=== PATIENT | female | born 1945 | race Caucasian/White ===

== ENCOUNTER → 2017-11-09 | Outpatient (CLI) | payer MEDICARE, OTHER ==
[~2017-11-09] MED LIST: ACET-458 PO; AMLO5TAB2 PO; ASPI-621 PO; ATOR40TA78 PO; BACL-19 PO; CALCIUM CIT PO; CO Q10; FENO145T30 PO; GLUC1TAB91 PO; HYDR25TA6 PO; KRIL1CAP23 PO; LEVO137T3 PO; LOSA100T6 PO; MAG PO; MAGNESIUM; MELO7.5T31 PO; METO25TA35 PO; MULT-717 PO; OXYC5TAB2 PO; POTA20TA89 PO; SENN1TAB67 PO; SPIR1TAB PO; TRAM50TA2 PO; VITA150T PO; VITAMIN C; VITAMIN D3; VITAMIN E; ZINC PO
[2017-11-09 14:28] LABS: ALANINE AMINOTRANSFERASE 30 U/L (12-78); ALBUMIN 4.2 g/dL (3.4-5.0); ANION GAP 8 mmol/L (5-15); CALCIUM 9.4 mg/dL (8.5-10.1); CHLORIDE 107 mmol/L (98-107); CREATININE 0.97 mg/dL (0.55-1.02)
[2017-11-09 14:31] LABS: ALKALINE PHOSPHATASE 47 U/L (45-117); BILIRUBIN,TOTAL 0.4 mg/dL (0.2-1.0); TOTAL PROTEIN 7.3 g/dL (6.4-8.2)
== END | disposition home or self-care (01) ==
LOC: STAR 13:13
PROVIDERS: ATTEND Surgery
DX: Z01.818 Encounter for other preprocedural examination (principal); K81.1 Chronic cholecystitis; R00.1 Bradycardia, unspecified
CPT/HCPCS: 36415; 80053; 93005

== ENCOUNTER 2017-11-16 09:55 | Day surgery (SDC) | payer MEDICARE, OTHER ==
[~2017-11-16] VITALS: Ht 170.2 cm; Wt 84.1 kg
[~2017-11-16 09:55] MED LIST changes: +BUPIVACAINE/PF-EPI 0.5% 1:200K ONE
[2017-11-16] MEDS ORDERED: LACTATED RINGERS 1,000 ML IV SCH (11:03)
[2017-11-16 11:27] VITALS: BP 162/75
[2017-11-16] MEDS ORDERED: ONDANSETRON ODT 8 MG PO ONE (11:30)
[2017-11-16] MEDS ORDERED: OxyconTIN ER 10 MG TAB.ER PO ONE (11:30)
[2017-11-16] MEDS ORDERED: ACETAMINOPHEN 500 MG TABLET PO ONE (11:30)
[2017-11-16] MEDS ORDERED: GABAPENTIN 300 MG CAPSULE PO ONE (11:30)
[2017-11-16] MEDS ORDERED: FENTANYL PF 100 MCG/2ML ONE ×2 (11:35→12:34)
[2017-11-16] MEDS ORDERED: LIDOCAINE-MPF 1%, 5ML ONE (11:52)
[2017-11-16] MEDS ORDERED: KETOROLAC 30 MG/1 ML ONE (11:52)
[2017-11-16] MEDS ORDERED: CEFAZOLIN 1,000 MG ONE ×2 (11:52→12:15)
[2017-11-16] MEDS ORDERED: ROCURONIUM 10 MG/ML,10ML ONE (11:52)
[2017-11-16] MEDS ORDERED: GLYCOPYRROLATE 0.2MG/1ML, 5ML ONE (12:15)
[2017-11-16] MEDS ORDERED: PROPOFOL 10 MG/ML, 20ML ONE (12:15)
[2017-11-16] MEDS ORDERED: DEXAMETHASONE 4 MG/ML, 1ML ONE (12:15)
[2017-11-16] MEDS ORDERED: NEOSTIGMINE 1 MG/ML, 10ML ONE (12:15)
[2017-11-16] MEDS ORDERED: SUCCINYLCHOLINE 20 MG/ML, 10ML ONE (12:15)
[2017-11-16] MEDS: MEPERIDINE/PF 25MG/0.5ML IVPush PRN ×2 (12:29→13:17)
[2017-11-16] MEDS ORDERED: ALBUTEROL/IPRATROPIUM 2.5MG/0.5MG, 3 ML NPPB PRN (12:30)
[2017-11-16] MEDS ORDERED: PROMETHAZINE 25 MG/ML, 1ML IV PRN (12:30)
[2017-11-16] MEDS ORDERED: ONDANSETRON 2MG/ML, 2ML IVPush PRN (12:30)
[2017-11-16] MEDS ORDERED: PROMETHAZINE 12.5 MG SUPP PR PRN (12:30)
[2017-11-16] MEDS ORDERED: morphine SULFATE 10 MG/ML, 1ML IV PRN (12:30)
[2017-11-16] MEDS ORDERED: OXYcodone 5 MG/5 ML ORAL.SOL UDC PO PRN (12:30)
[2017-11-16] MEDS ORDERED: LABETALOL 5MG/ML, 20ML IV PRN (12:30)
[2017-11-16] MEDS ORDERED: hydrALAzine 20 MG/ML, 1ML IV PRN (12:30)
[2017-11-16] MEDS ORDERED: LORazepam 2 MG/ML, 1ML IVPush PRN (12:30)
[2017-11-16] MEDS ORDERED: OXYcodone 5 MG/5 ML ORAL.SOL UDC ONE (12:34)
[2017-11-16] MEDS ORDERED: MIDAZOLAM 1 MG/ML, 2ML ONE (12:34)
[2017-11-16] MEDS ORDERED: MEPERIDINE/PF 25MG/0.5ML ONE ×2 (12:34→13:15)
[2017-11-16] MEDS: FENTANYL PF 100 MCG/2ML IV PRN ×2 (12:38→12:52)
[2017-11-16] MEDS: MIDAZOLAM 1 MG/ML, 2ML IV PRN ×2 (12:39→12:53)
[2017-11-16] MEDS ORDERED: hydrALAzine 20 MG/ML, 1ML ONE (13:06)
== END 2017-11-16 16:00 | disposition home or self-care (01) ==
LOC: OUT 09:55
PROVIDERS: ATTEND Surgery
DX: K80.10 Calculus of gallbladder with chronic cholecystitis without obstruction (principal); I10 Essential (primary) hypertension; E03.9 Hypothyroidism, unspecified; G89.4 Chronic pain syndrome; Z98.890 Other specified postprocedural states; Z90.710 Acquired absence of both cervix and uterus; Z79.82 Long term (current) use of aspirin; Z87.891 Personal history of nicotine dependence
CPT/HCPCS: 47562; 88304; C1729; C1760; J0330; J0360; J0690; J1100; J1885; J2175; J2250; J2704; J2710; J3010; J7120; Q0162; J3490

== ENCOUNTER → 2018-02-08 | Outpatient (CLI) | payer MEDICARE, OTHER ==
[~2018-02-08] MED LIST changes: -BUPIVACAINE/PF-EPI 0.5% 1:200K ONE
== END | disposition home or self-care (01) ==
LOC: CFH 14:02
PROVIDERS: ATTEND Internal Medicine Cardiovascular Disease
DX: I08.0 Rheumatic disorders of both mitral and aortic valves (principal); I10 Essential (primary) hypertension; Z79.82 Long term (current) use of aspirin
CPT/HCPCS: 93306

== ENCOUNTER → 2018-03-17 | Outpatient (CLI) | payer MEDICARE, OTHER ==
[~2018-03-17] MED LIST changes: -AMLO5TAB2 PO; +AMLO5TAB7 PO; -LOSA100T6 PO; +LOSA100T7 PO; +REGADENOSON 0.4 MG/5 ML SYRINGE ONE
== END | disposition home or self-care (01) ==
LOC: CFH 08:04
PROVIDERS: ATTEND Internal Medicine Cardiovascular Disease
DX: R07.9 Chest pain, unspecified (principal); Z87.891 Personal history of nicotine dependence
CPT/HCPCS: 78452; 93017; A9502; J2785

== ENCOUNTER 2018-10-19 07:09 | Outpatient (CLI) | payer MEDICARE, OTHER ==
[~2018-10-19 07:09] MED LIST changes: +AMLO-150 PO; -AMLO5TAB7 PO; -ASPI-621 PO; +ASPI81TA45 PO; +LOSA100T14 PO; -LOSA100T7 PO; -REGADENOSON 0.4 MG/5 ML SYRINGE ONE
== END 2018-10-19 23:59 | disposition home or self-care (01) ==
LOC: CVU 07:09
PROVIDERS: ATTEND Internal Medicine Cardiovascular Disease
DX: I87.2 Venous insufficiency (chronic) (peripheral) (principal)
CPT/HCPCS: 93970

== ENCOUNTER 2018-12-09 13:18 | Outpatient (CLI) | payer MEDICARE, OTHER ==
[2018-12-09] MEDS ORDERED: GADOBUTROL 7.5 MMOL/7.5 ML PFS ONE (14:20)
== END 2018-12-09 23:59 | disposition home or self-care (01) ==
LOC: RAD 13:18
PROVIDERS: ATTEND Podiatrist
DX: M19.072 Primary osteoarthritis, left ankle and foot (principal); M20.12 Hallux valgus (acquired), left foot; M62.572 Muscle wasting and atrophy, not elsewhere classified, left ankle and foot
CPT/HCPCS: 73720; A9585

== ENCOUNTER → 2020-11-28 | Outpatient (CLI) | payer MEDICARE, OTHER ==
[~2020-11-28] MED LIST changes: +FENO145T19 PO; -FENO145T30 PO
== END | disposition home or self-care (01) ==
LOC: CVU 08:41
PROVIDERS: ATTEND Internal Medicine Cardiovascular Disease
DX: I08.8 Other rheumatic multiple valve diseases (principal); E78.00 Pure hypercholesterolemia, unspecified; I10 Essential (primary) hypertension; Z87.891 Personal history of nicotine dependence; Z79.82 Long term (current) use of aspirin
CPT/HCPCS: 93306

== ENCOUNTER → 2020-12-07 | Outpatient (CLI) | payer MEDICARE, OTHER ==
[~2020-12-07] MED LIST changes: +REGADENOSON 0.4 MG/5 ML SYRINGE ONE
== END | disposition home or self-care (01) ==
LOC: CFH 07:58
PROVIDERS: ATTEND Internal Medicine Cardiovascular Disease
DX: I10 Essential (primary) hypertension (principal); R07.9 Chest pain, unspecified
CPT/HCPCS: 78452; 93017; A9502; J2785

== ENCOUNTER 2021-02-06 05:47 | Day surgery (SDC) | payer MEDICARE, OTHER ==
[2021-02-04 11:45] LABS: BASOPHILS % (AUTO) 1 % (0-1); EOSINOPHILS % (AUTO) 2 % (1-7); LYMPHOCYTES % (AUTO) 25 % (22-44); MEAN CORPUSCULAR HEMOGLOBIN 31.2 pg (27.0-34.8); MEAN PLATELET VOLUME 7.5 fL (7.4-10.4); MONOCYTES % (AUTO) 8 % (2-9); NEUTROPHILS % (AUTO) 64 % (42-75); PLATELET COUNT 218 x10^3/uL (130-400); RED BLOOD COUNT 4.26 x10^6/uL (3.82-5.3)
[2021-02-04 11:53] LABS: INTERNATIONAL NORMALIZED RATIO 1.08 (0.93-1.1); PROTHROMBIN TIME 11.5 Seconds (9.6-11.5)
[2021-02-04 11:54] LABS: ANION GAP 3 mmol/L (5-15); CALCIUM 9.5 mg/dL (8.5-10.1); CHLORIDE 106 mmol/L (98-107); CREATININE 0.94 mg/dL (0.55-1.02)
[~2021-02-06] VITALS: Ht 170.2 cm; Wt 68.0 kg
[~2021-02-06 05:47] MED LIST changes: -REGADENOSON 0.4 MG/5 ML SYRINGE ONE
[2021-02-06] MEDS ORDERED: NALOXONE 0.4 MG/ML, 1ML IVPush PRN ×2 (06:30)
[2021-02-06] MEDS ORDERED: SODIUM CHLORIDE 0.9% 1,000 ML IV ONE (06:30)
[2021-02-06 06:53] VITALS: BP 155/53
[2021-02-06] MEDS ORDERED: LIDOCAINE-MPF 1%, 5ML ONE (14:16)
[2021-02-06] MEDS ORDERED: MIDAZOLAM 1 MG/ML, 2ML ONE (14:16)
[2021-02-06] MEDS ORDERED: VERAPAMIL 2.5 MG/ML, 2ML ONE (14:16)
[2021-02-06] MEDS ORDERED: FENTANYL PF 100 MCG/2ML ONE (14:16)
[2021-02-06] MEDS ORDERED: HEPARIN 1,000 UNITS/ML, 10ML ONE (14:17)
[2021-02-06] MEDS ORDERED: hydrALAzine 20 MG/ML, 1ML ONE (14:58)
[2021-02-06] MEDS ORDERED: SODIUM CHLORIDE 0.9% 1,000 ML IV SCH (15:30)
== END 2021-02-06 16:41 | disposition home or self-care (01) ==
LOC: OUT 05:47
PROVIDERS: ATTEND Internal Medicine Cardiovascular Disease
DX: I08.1 Rheumatic disorders of both mitral and tricuspid valves (principal); I25.10 Atherosclerotic heart disease of native coronary artery without angina pectoris; I70.0 Atherosclerosis of aorta; I10 Essential (primary) hypertension; E03.9 Hypothyroidism, unspecified; E78.2 Mixed hyperlipidemia; E11.9 Type 2 diabetes mellitus without complications; G47.30 Sleep apnea, unspecified; E66.9 Obesity, unspecified; Z20.822 Contact with and (suspected) exposure to COVID-19; Z68.23 Body mass index [BMI] 23.0-23.9, adult; Z79.82 Long term (current) use of aspirin; Z79.890 Hormone replacement therapy; Z79.891 Long term (current) use of opiate analgesic; Z79.899 Other long term (current) drug therapy; Z87.891 Personal history of nicotine dependence; Z98.890 Other specified postprocedural states; Z82.49 Family history of ischemic heart disease and other diseases of the circulatory system; Z83.3 Family history of diabetes mellitus; Z80.9 Family history of malignant neoplasm, unspecified
CPT/HCPCS: 36415; 71046; 80048; 85025; 85610; 87635; 93312; 93321; 93325; 93458; 99156; C1769; C1894; J0360; J1644; J2250; J3010; Q9967